=== PATIENT | female | born 2000 | race African-American/Black ===

== ENCOUNTER 2023-06-27 16:21 | Emergency (ER) | payer MEDICAID, OTHER ==
[~2023-06-27] VITALS: Ht 162.6 cm; Wt 108.0 kg
[2023-06-27 16:44] VITALS: O2SAT 100
[2023-06-27] MEDS ORDERED: BACITRACIN ZINC OINT UDPKT TOP ONE (18:00)
[2023-06-27] MEDS ORDERED: LIDOCAINE HCL/PF 1% 10 MG/ML 5ML VIAL INFIL ONE (18:00)
[2023-06-27] MEDS ORDERED: SULF1TAB48 MT (21:36)
[2023-06-27] MEDS ORDERED: AMOX1TAB16 MT (21:36)
[2023-06-27] MEDS: TETANUS, DIPHTHERIA, PERTUSSIS VAC/PF 0.5ML (>10YR OLD) IM ONE (22:41)
[2023-06-27 22:45] VITALS: BP 174/100; PULSE 82; RESP 18; TEMP 98.9
[2023-06-27] MEDS: AMOXICILLIN/POTASSIUM CLAVULANATE 875/125MG TAB PO ONE (22:59)
[2023-06-27] MEDS: SULFAMETHOXAZOLE/TRIMETHOPRIM 800/160MG TABLET PO ONE (23:00)
== END 2023-06-27 23:08 | disposition home or self-care (01) ==
LOC: ER 16:21
DX: L08.9 Local infection of the skin and subcutaneous tissue, unspecified (principal); M79.89 Other specified soft tissue disorders
CPT/HCPCS: 73130; 90715; 10060; 90471; 99283; Z7610 ×2

== ENCOUNTER 2024-08-24 12:42 | Emergency (ER) | payer OTHER ==
[~2024-08-24] VITALS: Ht 162.6 cm; Wt 104.3 kg
[~2024-08-24 12:42] MED LIST: AMOX1TAB16 MT; SULF1TAB48 MT
[2024-08-24 12:47] VITALS: BP 169/103; TEMP 36.7; O2SAT 98
[2024-08-24 13:06] VITALS: PULSE 99; RESP 18; O2SAT 100
[2024-08-24] MEDS ORDERED: HYDR-4009 MT (17:09)
== END 2024-08-24 18:26 | disposition home or self-care (01) ==
LOC: ER 12:42
DX: S92.352A Displaced fracture of fifth metatarsal bone, left foot, initial encounter for closed fracture (principal); Z79.899 Other long term (current) drug therapy; V48.2XXA Person on outside of car injured in noncollision transport accident in nontraffic accident, initial encounter; Y93.01 Activity, walking, marching and hiking; Y92.89 Other specified places as the place of occurrence of the external cause; Y99.8 Other external cause status
CPT/HCPCS: 73630; 29515; 99283; A6449; Z7610